=== PATIENT | male | born 1960 | race Caucasian/White ===

== ENCOUNTER 2022-12-10 10:03 | Outpatient (CLI) | payer OTHER, SELFPAY | END 2022-12-10 10:04 | disposition home or self-care (01) | PROVIDERS: Visit Provider Physician Assistant Surgical | DX: T81.31XA Disruption of external operation (surgical) wound, not elsewhere classified, initial encounter (principal); I10 Essential (primary) hypertension; Z48.02 Encounter for removal of sutures | CPT/HCPCS: 11042; 99213 ==

== ENCOUNTER 2022-12-26 11:01 | Outpatient (CLI) | payer OTHER, SELFPAY | END 2022-12-26 11:02 | disposition home or self-care (01) | PROVIDERS: Visit Provider Nurse Practitioner Family | DX: T81.31XA Disruption of external operation (surgical) wound, not elsewhere classified, initial encounter (principal); L97.522 Non-pressure chronic ulcer of other part of left foot with fat layer exposed | CPT/HCPCS: 11042; 87070; 87186 ==

== ENCOUNTER 2023-01-06 11:32 | Outpatient (CLI) | payer OTHER, SELFPAY | END 2023-01-06 11:33 | disposition home or self-care (01) | LOC: WOUND 11:32 | PROVIDERS: Visit Provider Nurse Practitioner Family | DX: T81.31XA Disruption of external operation (surgical) wound, not elsewhere classified, initial encounter (principal); L97.522 Non-pressure chronic ulcer of other part of left foot with fat layer exposed | CPT/HCPCS: 97597 ==

== ENCOUNTER 2023-01-16 07:53 | Outpatient (CLI) | payer OTHER, SELFPAY | END 2023-01-16 07:54 | disposition home or self-care (01) | PROVIDERS: Visit Provider Nurse Practitioner Family | DX: T81.31XA Disruption of external operation (surgical) wound, not elsewhere classified, initial encounter (principal) | CPT/HCPCS: 97597 ==

== ENCOUNTER 2023-02-04 14:18 | Outpatient (CLI) | payer OTHER, SELFPAY | END 2023-02-04 14:19 | disposition home or self-care (01) | LOC: WOUND 14:18 | PROVIDERS: Visit Provider Nurse Practitioner Family | DX: T81.31XA Disruption of external operation (surgical) wound, not elsewhere classified, initial encounter (principal); L97.522 Non-pressure chronic ulcer of other part of left foot with fat layer exposed | CPT/HCPCS: 97597 ==

== ENCOUNTER 2023-02-13 08:53 | Outpatient (CLI) | payer OTHER, SELFPAY | END 2023-02-13 08:54 | disposition home or self-care (01) | LOC: WOUND 08:53 | PROVIDERS: Visit Provider Nurse Practitioner Family | DX: T81.31XA Disruption of external operation (surgical) wound, not elsewhere classified, initial encounter (principal) | CPT/HCPCS: 97597 ==

== ENCOUNTER 2023-02-20 12:48 | Outpatient (CLI) | payer OTHER, SELFPAY | END 2023-02-20 12:49 | disposition home or self-care (01) | LOC: WOUND 12:48 | PROVIDERS: Visit Provider Nurse Practitioner Family | DX: T81.31XA Disruption of external operation (surgical) wound, not elsewhere classified, initial encounter (principal); L97.522 Non-pressure chronic ulcer of other part of left foot with fat layer exposed | CPT/HCPCS: 97597 ==

== ENCOUNTER 2023-03-06 11:29 | Outpatient (CLI) | payer OTHER, SELFPAY | END 2023-03-06 11:30 | disposition home or self-care (01) | PROVIDERS: Visit Provider Nurse Practitioner Family | DX: T81.31XA Disruption of external operation (surgical) wound, not elsewhere classified, initial encounter (principal); L97.522 Non-pressure chronic ulcer of other part of left foot with fat layer exposed | CPT/HCPCS: 99213 ==